=== PATIENT | female | born 1970 | race Two or more races ===

== ENCOUNTER 2025-01-23 07:54 | Inpatient (IN) | payer BC ==
[~2025-01-23] VITALS: Ht 157.5 cm; Wt 81.3 kg
[~2025-01-23 07:54] MED LIST: ATOR10TA52 PO; CHOLCAP10 PO; FURO40TA4 PO; HYDR-4491 OR; LEFL20TA PO; LISI20TA56 PO; METF-370 PO; TIRZ10IN SC
[2025-01-23] MEDS: TRANEXAMIC ACID 20 ML ONE (07:55)
[2025-01-23] MEDS: levoFLOXacin 500MG 100 ML IV ONE (07:55)
[2025-01-23] MEDS ORDERED: MIDAZOLAM HCL 2MG/2ML 2ml VIAL (1mg/ml) ONE (08:00)
[2025-01-23] MEDS ORDERED: fentaNYL CITRATE 100 MCG/2 ML VL ONE ×2 (08:00→11:54)
[2025-01-23] MEDS ORDERED: fentaNYL CITRATE 5 ML ONE (08:00)
[2025-01-23] MEDS ORDERED: HYDROmorphone HCL 2 MG/ML VL/or syr ONE (08:00)
[2025-01-23] MEDS: ceFAZolin 2 GM/D5W50ml 50 ML IV ONE (08:11)
--- NOTE | 2025-01-23 09:37 | DVHHP2 ---
History Allergies: Coded Allergies: NO KNOWN ALLERGIES (Unverified , 01/22/25) Chief Complaint: Cervical stenosis Present Illness(Onset/Duration Patient arrives today for elective surgery with Dr. Devan De Santiago cervical 3 through 7 anterior cervical diskectomy and fusion The risks/benefits/alternatives of surgery were explained to the patient in detail including but not limited to , stroke, paralysis, myocardial infarction, bleeding, infection, complications of anesthesia (dry mouth, sore throat, dental damage, respiratory depression, blindness), postoperative infection, incomplete relief of symptoms, recurrence of symptoms, damage to blood vessels, nerves and tendons, pulmonary embolism and possible need for repeat surgery in the future. Pain, damage to surrounding soft tissue structures, need for reoperation or future surgery, persistent pain/disability/deformity, bone graft collapse or extrusion of interbody device, instrumentation failure, need for instrumentation removal, dural tear, temporary or permanent nerve root damage, deep vein thrombosis, pulmonary embolism, were described to the patient in detail and the patient wishes to proceed. No guarantee of surgical outcome/improvement was implied. All of the questions were answered thoroughly and consents were obtained. Call with raman Forbes [facility] Orthopaedic Spine Surgery nurse practitioner For Dr Tre De Santiago Patient was examined, chart reviewed, labs evaluated, and diagnostic studies and findings analyzed. Case was discussed with Dr. Devan De Santiago who formulated the plan of care. This medical document was created using an electronic medical record system with [employer] dictation system. Although this document has been carefully reviewed, there might still be some phonetic and typographical errors. These areas are purely typographical due to imperfections of the software programs, and do not reflect any compromise in the patient's medical care. Past Surgical History: Hysterectomy Exam Exam General Appearance: Normal HEENT: Normal ENT Inspection Neck: Normal Inspection, Other (Bilateral neck and shoulder pain and soreness no limitation in range of movement) Respiratory: No Accessory Muscle Use, No Respiratory Distress Cardiovascular: Other (No complaints) Gastrointestinal: Non Tender, Other (No complaints) Extremities: Normal capillary refill, Normal inspection, Normal range of motion, Other (Good H[employer] Vendor 5/5) Neurologic: No Motor Deficits, Normal Affect, No Sensory Deficits Plan Additional comments: Patient states that she has had bilateral neck pain right greater than left for several years she does notice that she does have difficulty with gripping for extended period of time she also complains of bilateral lower leg weakness occasionally JAMIE FORBES FURNIT[employer] SALES ASSOCIATE Jan 23, 2025 09:37
[2025-01-23] MEDS ORDERED: DexAMETHasone SOD PHOS 10MG/1ML VIAL INJ ONE (09:39)
--- NOTE | 2025-01-23 09:40 | POSTOP ---
Post-Operative Note Post-Operative Note Preop Diagnosis Cervical Degenerative Disk Disease and Spinal Stenosis Causing incapacitating neck pain, radiculopathy and progressive neurologic deficit Postop Diagnosis: Cervical Degenerative Disk Disease and Spinal Stenosis Causing incapacitating neck pain, radiculopathy and progressive neurologic deficit Operation performed Cervical 3-7 anterior cervical diskectomy and fusion, mobi-C Specimen none Anesthesia: General Anesthesiologist: Dr Lockhart Blood Loss(fluid mgmt) see anesthesia record Tourniquet Time none Surgeon Dr Devan De Santiago Filterer Qing Ross [employer] Implant Mobi-c [id number] x 2 Complications & Mgmt None Additional Remarks Disposition: -Pending -Discharge RX: -Follow up appointment: with Dr De Santiago [place] [id number] [employer] [address] [place] [place] [id number] -Pain: - IV pain meds post op day 1, with PO supplementation, goal is to progress weaning off IV medications and control pain with PO only. morphine 1mg q 4 hours (PAIN 7-10) - P.O. analgesics:Tylenol 650MG (PAIN 1-3) [place] 10/325 mg (PAIN 4-6) - Muscle relaxers scheduled administration. This is a beneficial medications for the incisional pain as it is mostly related to muscle spasms. Flexeril 10 mg TID - Cepacol throat lozenges as needed for sore throat -Antibiotics Operative recommendations: -Postoperative dose:-Post operative antibiotics cefazolin 1 g IV piggyback every 8 hours x 48 hours total of 6 doses -DVT PPX: -Hold all chemical DVT/ blood thinners for 14 days postoperatively -use mechanical DVT PPX such as SCD's, ambulation -Activity: -Pending PT evaluation and patients progression -Sit at side of bed for meals -Goal: Ambulate independently and safely (may use assistive devices if needed) -Medical Therapy goals: -Afebrile- Patient may develop a expected post operative fever by day 2-3, this may not be accompanied with a elevation in WBC. if fever develops: Acetaminophen for fever. Albuterol nebulizer Tx every 12 hours for 24 hours to facilitate adequate lung expansion and prevent development of atelectasis. -Euglycemic: bloods sugars under 130mmol/L for optimal healing -Normotensive: Avoid events of hypertension. This helps to keep post operative healing intact and avoids destabilization of beneficial hemostatic coagulation. Drains -Bulb drains: record output and characteristics of the drainage EVERY 6 HOURS- if there is no output indicate this by documenting 0ml output in note. These will be to thumbprint compression unless otherwise ordered. Record output as well as amount in a note at least every 6 houtrs- more if indicated. Wound drainage is described by type, color, amount, and odor. Drainage can be 1 serous: Clear and thin, may be present in healing healthy wound. 2 serosanguineous containing blood may also be present and healthy healing wound 3. Sanguinous primarily blood 4. Purulent this is thick, white, and pus like. It may be indicated to give of a infection and should constitute a call to the provider immediately with the plan that the sample should be cultured. -Bruno: -DC in OR -Dressings -Anterior cervical patients: Initial surgical dressing may be reinforced if needed. If there is excessive bleeding, leaking, drainage in the bulb drain notify provider -Bowel management: -Colace 100mg bid -Diet: -Clear liquid diet and advance as patient tolerates within dietary limitations ( example: diabetic, Cardiac) -Incentive Spirometer: -10 x hour while awake, RN please educate and observe repeat demonstration, have IS at bedside POD #1 -X-rays: - none indicated at this time -Consults: -Physical Therapy evaluation, treatment recommendations, and discharge recommendations Call with questions Terrence Ross ACNP- Orthopaedic Spine Surgery nurse practitioner For Dr Tre De Santiago Patient was examined, chart reviewed, labs evaluated, and diagnostic studies and findings analyzed. Case was discussed with Dr. Devan De Santiago who formulated the plan of care. This medical document was created using an electronic medical record system with [employer] dictation system. Although this document has been carefully reviewed, there might still be some phonetic and typographical errors. These areas are purely typographical due to imperfections of the software programs, and do not reflect any compromise in the patient's medical care. Date 01/23/25 Time 09:37 QING ROSS NP Jan 23, 2025 09:39
[2025-01-23] MEDS: ONDANSETRON HCL 4 MG/2 ML VIAL IV ONE (10:30)
[2025-01-23] MEDS ORDERED: HYDROmorphone HCL 2 MG/ML VL/or syr IV PRN (10:30)
[2025-01-23] MEDS ORDERED: MORPHINE SULFATE 4 MG/ML SYR/VIAL IV PRN ×2 (10:30→13:00)
[2025-01-23] MEDS: METOCLOPRAMIDE HCL 5MG/ml INJ 2ml VIAL IV ONE (10:30)
[2025-01-23] MEDS ORDERED: hydrALAZINE HCL 20 MG/ML VL IV PRN (10:30)
[2025-01-23] MEDS ORDERED: MIDAZOLAM HCL 2MG/2ML 2ml VIAL (1mg/ml) IV PRN (10:30)
[2025-01-23] MEDS: ACCU-CHEK COMFORT CURVE STRIP VI ONE (10:30)
[2025-01-23] MEDS ORDERED: ePHEDrine SULFATE 50 MG/ML AMP IV PRN (10:30)
[2025-01-23] MEDS ORDERED: PHENYLEPHRINE HCL 10 MG/ML VL IV ONE (11:15)
[2025-01-23] MEDS ORDERED: SUGAMMADEX 200mg/2ml Vial (100MG/ML) IV ONE (12:28)
[2025-01-23] MEDS ORDERED: NITROGLYCERIN 0.4 MG SL TAB SL PRN (12:45)
[2025-01-23] MEDS ORDERED: ACETAMINOPHEN 325 MG TAB PO PRN (12:45)
[2025-01-23] MEDS ORDERED: ONDANSETRON HCL 4 MG/2 ML VIAL IV PRN (12:45)
[2025-01-23] MEDS ORDERED: MORPHINE SULFATE INJ 2 MG/ml SYRG IV PRN ×2 (12:45)
--- NOTE | 2025-01-23 12:54 | DVHOP2 ---
Operative Report - 2 Report Details Date: 01/23/25 Preop Diagnosis: cervical spinal stenosis Postop Diagnosis: same as pre op Surgeon: Devan De Santiago MD Food Analyst: Qing Forbes NP Anesthesiologist: Dr. Lockhart Anesthesia: General Consent: The patient was informed of the risks and benefits of the procedure. These include but are not limited to complications of anesthesia, postoperative infection, incomplete relief of symptoms, recurrence of symptoms, damage to blood vessels, nerves and tendons, deep venous thrombosis, pulmonary embolism and possible need for repeat surgery in the future. Name of Procedure Performed see detailed note Procedure Details Procedure Details: Pre Op Diagnosis: Cervical Degenerative Disk Disease and Spinal Stenosis Ca using incapacitating neck pain, radiculopathy and progressive neurologic deficit Post Op Diagnosis: Cervical Degenerative Disk Disease and Spinal Stenosis Causing incapacitating neck pain, radiculopathy and progressive neurologic deficit Procedure: Cervical 5 to 6 anterior cervical discectomy with Cervical 5-6 foraminotomies and facetectomies to decompression the spinal canal and Cervical 6 nerve roots Cervical 6 to 7 anterior cervical discectomy with Cervical 6-7 foraminotomies and facetectomies to decompression the spinal canal and Cervical 7 nerve roots Cervical 5/6 artificial disk arthroplasty with MOBI C device Cervical 6/7 artificial disk arthroplasty with MOBI C device Microscope for micro dissection Surgeon: Devan De Santiago MD Anesthesia: General Assist: Qing Forbes NP Fluids and EBL: see anesthesia note Procedure Note: The patient was seen in the Pre-anesthesia Care Unit and the site of the incision was initialed by me with a felt tipped marker. All questions by the patient were answered to the satisfaction of the patient and the chart was reviewed. The patient was taken to the operating room and placed supine on the [facility] Flat top table. General anesthesia was induced. Neuromonitoring leads were placed. A rolled towel was placed between the shoulder blades to hyperextend out the chest which will allow better exposure of the cervical spine. Halter traction to 10 pounds was placed. The arms were padded and adducted to the patient's side making sure all pulses in the hands were present. Tape traction was undertaken on the shoulders to give us better radiographic exposure of the distal cervical spine. A gel-pad was placed under the occiput and 5 degrees of extension was placed on the neck without adverse effects to the patient. The anterior neck was prepped and draped. Pre-operative antibiotics were given 30 minutes prior to the start of the procedure. A c-arm fluoroscope was used to graciela out the incision site. At this time, a time out was taken per usual protocol. Next an incision was made through the skin with a 15 blade scalpel through the subcutaneous tissue down to the platysma. Self-retainers were placed. The platysma was incised along the longitudinal border with a Metzenbaum scissors. Blunt dissection was made through the deep cervical and pre-tracheal fascia taking care to protect the carotid sheath laterally and the Trachea/esophagus medially. The dissection was carried down to the prevertebral fascia. Any crossing vessels were ligated using a vascular clip or coagulated with a bovie. An esophageal retractor was next used to retract the trachea/esophagus and a bent [address] through the anterior annulus of the cervical disk and a lateral C-arm fluoroscopic image was taken to confirm that we were at the correct level. Next, bovie electrocautery was used to expose the bones cervical 4 and 5and bipolar electrocuatery was used to lift up the Longus colli and capitus muscles. Black-Belt Self Retainers were used to retract the longus colli and capitus muscles bilaterally as well as the trachea/esophagus to the right and the carotid sheath to the left. Smooth thin Black-Belt retractors were placed proximally and distally and a needle was placed again in the anterior annulus of the disk and an image taken to confirm the correct level. At this point, the microscope was wheeled in and an 11 blade scalpel incised the anterior annulus of the cervical cervical 5/6 and 6/7 disks. Next, straight and curved curettes removed the remainder of the disks all the way down to the posterior longitudinal ligament. Carefully, a Kerison number one rongeur inscised the posterior longitudinal ligament at the lateral end of the cervical 5/6 and 6/7 disk and using a micro, blunt tip nerve hook to separate the posterior longitudinal ligament from the dura, alternating 1 mm and 2 mm Kerison rongeurs removed the posterior longitudinal ligament. Next, Kerison 1mm and 2 mm rongeurs were alternated to get under the uncinate processes and undercut them to perform foraminotomies and factectomies at cervical 5/6 and 6/7levels to decompress the central canal and cervical 6 and 7 nerve roots. Next the microscope was wheeled away and the c-arm fluoroscope was wheeled into the field and a lateral image was obtained. Increasing size graft trials were used starting at a 5 mm thick size until the proper tension in the disk space and height anabaptism obtained. We then placed a MOBI C deviceat cervical 5/6 and then repeated the Process at C6/7. Both levels were 15/15/5. Satisfactory placement was confirmed in the AP and lateral views using a C-arm fluoroscope. Copious irrigation of the wound with sterile saline and all bleeding was controlled before closure initiated. At this point, a 10 [place] round Raghu Drain was place deep to the Platysma muscle and the Platysma was approximated with one interrupted 0-Vicryl suture. The subcutaneous tissue was closed with interrupted 2-0 vicryl sutures and the skin was closed with earlene. Sterile dressings were placed and a cervical collar placed, the patient extubated, transferred to the stretcher and taken to the Recovery Room in unremarkable condition. CPT code: 57737,64316 Condition Stable Disposition Still a Patient DEVAN DE SANTIAGO MD Jan 23, 2025 12:54
[2025-01-23 12:55] VITALS: PULSE 78; RESP 12; O2SAT 94
[2025-01-23] MEDS ORDERED: ceFAZolin 1GM/50ML 50 ML IV SCH (14:00)
[2025-01-23] MEDS: D5W/SOD CHLO 0.9% 1,000 ML IV SCH (14:23)
[2025-01-23 16:53] VITALS: BP 99/67; PULSE 68; RESP 12; TEMP 98.1; O2SAT 95
[2025-01-23 17:00] VITALS: BP 128/79; PULSE 73; RESP 12; TEMP 96.7; O2SAT 94
[2025-01-23] MEDS: CYCLOBENZAPRINE HCL 10 MG TAB PO SCH (17:07)
[2025-01-23] MEDS: ceFAZolin 1GM/50ML 50 ML IV SCH (17:14)
[2025-01-23] MEDS: HYDROcodone-ACET 10/325MG TAB PO PRN (18:11)
[2025-01-23 20:00] VITALS: PULSE 83
[2025-01-23 21:00] VITALS: BP 131/68; PULSE 77; RESP 17; TEMP 97.5; O2SAT 92
[2025-01-23] MEDS: DOCUSATE SOD 100 MG CAP PO SCH (21:57)
[2025-01-23] MEDS: MORPHINE SULFATE 4 MG/ML SYR/VIAL IV PRN (22:04)
[2025-01-24 01:00] VITALS: BP 105/63; PULSE 75; RESP 17; TEMP 97.5; O2SAT 96
--- NOTE | 2025-01-24 03:56 | DVH ---
C-ARM FLUOROSCOPY: PROCEDURE: Cervical spine surgery FLUOROSCOPY TIME: 1 minute 36 seconds DAP: 1 mgy FINDINGS: Spot intraoperative C arm radiographs demonstrating cervical spine surgery. IMPRESSION: Please refer to surgical report for detailed findings.
[2025-01-24 05:00] VITALS: BP 102/64; PULSE 69; RESP 17; TEMP 97.8; O2SAT 97
[2025-01-24 08:00] VITALS: BP 113/70; PULSE 62; PULSE 66; RESP 16; TEMP 97.6; O2SAT 97
[2025-01-24 12:10] VITALS: BP 109/61; PULSE 83; RESP 16; TEMP 98.9; O2SAT 97
[2025-01-24] MEDS ORDERED: DEXTROSE (50%) 50ML SYRG IV PRN (13:00)
[2025-01-24] MEDS ORDERED: CYCL-611 PO (13:19)
[2025-01-24] MEDS ORDERED: DOCU-265 PO (13:19)
[2025-01-24] MEDS ORDERED: HYDR-4798 PO (13:20)
--- NOTE | 2025-01-24 13:31 | DVHDS2 ---
ASSESSMENT ASSESSMENT Hospital Course The patient arrived for a elective spine surgery with Dr. DE SANTIAGO. Surgery went as planned with no complications. After a short stay in the PACU patient was admitted to the hospital for postoperative care and pain management over the course of 1 postoperative days the patient was able to tolerate a diet, ambulate independently, the pain has been managed with oral analgesics. The surgical site is well-approximated with sutures, some residual drainage continues from drain insertion sites after removal, however it is manageable with daily wound care and dressing changes. Some improvement to preoperative symptoms of extremities, strength and motion. There is new post operative pain that is localized to the surgical site. The patient will follow-up with Dr. De Santiago for wound check and staple removal. You may shower and let the water run over your neck wound however you must pat it dry with sterile 4x4s gauze. Please do not use regular household towels. Keep your incision covered when you are out of your house or when you are wearing clothing that rub on your incision. He will also do not want to have a seatbelt rubbing on your incision. If you are at home and you have clothing that does not contact your incision you may leave it open to air. You may have some residual drainage from the drain site for the next 2-3 days which is normal it should be a very light pink or rissa color fluid. If it changes or becomes bright red please call 911. Assessment Cervical Degenerative Disk Disease and Spinal Stenosis Causingincapacitating neck pain, radiculopathy and progressive neurologic deficit Problems: (1) Muscle spasms of neck Assessments: flexeril prescribed (2) Postoperative pain after spinal surgery Assessments: pain medications sent to pharmacy of choice JAMIE ROSS NP Jan 24, 2025 13:31
--- NOTE | 2025-01-24 13:31 | DVHDS2 ---
Discharge Summary Date of Admission Jan 23, 2025 at 12:34 Date of Discharge: Jan 24, 2025 Admitting Diagnosis Cervical Degenerative Disk Disease and Spinal Stenosis Causing incapacitating neck pain, radiculopathy and progressive neurologic deficit Wounds: left anterior neck, wound edges are well approximated with earlene minimal drainage after drain removal. Patient understands that residual drainage is to be expected Labs/Diagnostic Data: Laboratory Results Test 01/23/25 13:01 POC Glucose 136 mg/dl (70-106) Brief Hx & Hospital Course: The patient arrived for a elective spine surgery with Dr. DE SANTIAGO. Surgery went as planned with no complications. After a short stay in the PACU patient was admitted to the hospital for postoperative care and pain management over the course of 1 postoperative days the patient was able to tolerate a diet, ambulate independently, the pain has been managed with oral analgesics. The surgical site is well-approximated with sutures, some residual drainage continues from drain insertion sites after removal, however it is manageable with daily wound care and dressing changes. Some improvement to preoperative symptoms of extremities, strength and motion. There is new post operative pain that is localized to the surgical site. The patient will follow-up with Dr. De Santiago for wound check and staple removal. You may shower and let the water run over your neck wound however you must pat it dry with sterile 4x4s gauze. Please do not use regular household towels. Keep your incision covered when you are out of your house or when you are wearing clothing that rub on your incision. He will also do not want to have a seatbelt rubbing on your incision. If you are at home and you have clothing that does not contact your incision you may leave it open to air. You may have some residual drainage from the drain site for the next 2-3 days which is normal it should be a very light pink or rissa color fluid. If it changes or becomes bright red please call 911. Operations or Procedures Cervical 3-7 anterior cervical diskectomy and fusion, mobi-C Condition at Discharge: Good Final Diagnosis/Problems List pain medications sent to pharmacy of choice Problems List: (1) Muscle spasms of neck Status: Acute (2) Postoperative pain after spinal surgery Status: Acute Discharge Disposition: Home Discharge Instruct/Medications Diet: Consistent carbohydrate Diet comment: avoid high sugar food, as well as processed foods. keep blood sugar in check Activity: Light activity Activity comment: Move you neck through normal range of motion, do not force movments. You may use warm or cool to your shoulders and back of your neck if it is helpfull. Follow Up/Referral: keep your post op appointment Call [phone] for a appointment, or to change or confirm your appoinment [id number] [facility], [address], [place] [id number] Medications: medications sent to pharmacy of choice New Medications: Cyclobenzaprine HCl (Cyclobenzaprine Hydrochlo) 10 Mg Tab 10 MG PO TID for 30 Days, #90 TAB Docusate Sodium (Docusate Sodium) 100 Mg Cap 100 MG PO BID for 14 Days, #28 CAP Hydrocodone-Acetaminophen (Hydrocodone Bitartrate/AC 10-325 mg) 1 Tab Tab 1 TAB PO Q6HP PRN for 7 Days, #28 TAB Continued Medications: Atorvastatin Calcium (Atorvastatin Calcium) 10 Mg Tab 10 MG PO DAILY, TAB Cholecalciferol (D2000 Ultra Strength) 2,000 Unit Cap 2000 UNIT PO DAILY, CAP Furosemide (Furosemide) 40 Mg Tab 40 MG PO DAILY, TAB Hydroxychloroquine Sulfate (Plaquenil) 200 Mg Tab 200 MG OR BID, TAB Leflunomide (Arava) 20 Mg Tab 20 MG PO DAILY, TAB Lisinopril (Lisinopril) 20 Mg Tab 20 MG PO DAILY@BREAKFAST, TAB Metformin Hydrochloride (Metformin Hcl) 500 Mg Tab 500 MG PO BID, TAB Tirzepatide (Mounjaro) 10 Mg/0.5 Ml Inj 10 MG SC QWEEKLY, INJ 25 Discharge Statement: "Patient was advised to return to the ER or call 911 if any headaches, dizziness, shortness of breath, chest pain, abdominal pain, bleeding, fevers, or worsening of medical condition. Patient was counseled about treatment plan, medications, possible side effects, patientverbalized understanding. All questions were answered to the best of my ability. This discharge took greater then 30 minutes in planning, reviewing documentation, counseling the patient, and discussing with other team members." ASSESSMENT ASSESSMENT Hospital Course The patient arrived for a elective spine surgery with Dr. DE SANTIAGO. Surgery went as planned with no complications. After a short stay in the PACU patient was admitted to the hospital for postoperative care and pain management over the course of 1 postoperative days the patient was able to tolerate a diet, ambulate independently, the pain has been managed with oral analgesics. The surgical site is well-approximated with sutures, some residual drainage continues from drain insertion sites after removal, however it is manageable with daily wound care and dressing changes. Some improvement to preoperative symptoms of extremities, strength and motion. There is new post operative pain that is localized to the surgical site. The patient will follow-up with Dr. De Santiago for wound check and staple removal. You may shower and let the water run over your neck wound however you must pat it dry with sterile 4x4s gauze. Please do not use regular household towels. Keep your incision covered when you are out of your house or when you are wearing clothing that rub on your incision. He will also do not want to have a seatbelt rubbing on your incision. If you are at home and you have clothing that does not contact your incision you may leave it open to air. You may have some residual drainage from the drain site for the next 2-3 days which is normal it should be a very light pink or rissa color fluid. If it changes or becomes bright red please call 911. Assessment pain medications sent to pharmacy of choice Problems: (1) Muscle spasms of neck Assessments: flexeril prescribed (2) Postoperative pain after spinal surgery Assessments: pain medications sent to pharmacy of choice JAMIE ROSS NP Jan 24, 2025 13:31
--- NOTE | 2025-01-24 14:22 | DVHINCON2 ---
Date Seen: Jan 23, 2025 Referring Physician Orthopedic spine surgeon. Reason for Consultation Medical management. History of Present Illness 84-year-old female with a known history of hypertension, dyslipidemia, connective tissue disorder, history of lupus, cervical degenerative disc disease who was admitted by spine surgery for elective procedure. Patient is status post L5-6-7 lumbar spine surgery. Patient is currently denies any chest pain shortness of breath fevers chills headache blurry vision. Past Medical History Hypertension Dyslipidemia Mixed connective tissue disorder Lupus Cervical degenerative disc disease. Past Surgical History Status post C 5-6-7 anterior diskectomy with cervical fusion surgery. Family History: Diabetes mellitus G8 MOTHER FH: breast cancer G8 MOTHER FH: cirrhosis G8 MOTHER G8 FATHER FH: prostate cancer G8 FATHER Allergies: Coded Allergies: NO KNOWN ALLERGIES (Unverified , 01/22/25) Home Meds Active Scripts Hydrocodone-Acetaminophen (Hydrocodone Bitartrate/AC 10-325 mg) 1 Tab Tab, 1 TAB PO Q6HP PRN for 7 Days, #28 TAB Prov:JAMIE ROSS HABILITATION ASSISTANT 01/24/25 Docusate Sodium (Docusate Sodium) 100 Mg Cap, 100 MG PO BID for 14 Days, #28 CAP Prov:JAMIE ROSS HABILITATION ASSISTANT 01/24/25 Cyclobenzaprine HCl (Cyclobenzaprine Hydrochlo) 10 Mg Tab, 10 MG PO TID for 30 Days, #90 TAB Prov:JAMIE ROSS HABILITATION ASSISTANT 01/24/25 Reported Medications Cholecalciferol (D2000 Ultra Strength) 2,000 Unit Cap, 2000 UNIT PO DAILY, CAP 01/22/25 Atorvastatin Calcium (ATORVASTATIN CALCIUM) 10 Mg Tab, 10 MG PO DAILY, TAB 01/22/25 Hydroxychloroquine Sulfate (PLAQUENIL) 200 Mg Tab, 200 MG OR BID, TAB 01/22/25 Leflunomide (Arava) 20 Mg Tab, 20 MG PO DAILY, TAB 01/22/25 Furosemide (Furosemide) 40 Mg Tab, 40 MG PO DAILY, TAB 01/22/25 Lisinopril (Lisinopril) 20 Mg Tab, 20 MG PO DAILY@BREAKFAST, TAB 01/22/25 Metformin Hydrochloride (Metformin Hcl) 500 Mg Tab, 500 MG PO BID, TAB 01/22/25 Tirzepatide (Mounjaro) 10 Mg/0.5 Ml Inj, 10 MG SC QWEEKLY, INJ 01/22/25 Current Medications Current Medications Medications (Trade) Dose Ordered Sig/Cassy Route PRN Reason Start Time Stop Time Status Last Admin Docusate Sodium (Colace Capsule) 100 mg BID PO 01/23/25 22:00 01/24/25 09:08 Cefazolin Sodium 50 ml @ 100 mls/hr Q8H IV 01/23/25 17:30 01/25/25 09:59 01/24/25 09:08 Diagnostic Test (Pha) (Accu-Chek Comfort Curve T) 1 strip ACHS 01/24/25 17:00 Insulin Human Regular (InsuLIN R) ACHS SC 01/24/25 17:00 Dextrose 50 ml UD PRN IV Blood Sugar LESS THAN 60 01/24/25 13:00 Review of Systems Twelve review of system are negative besides mentioned above. 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 1. Hypertension controlled 2. Dyslipidemia 3. Mixed connective tissue disorder 4. Lupus 5. Cervical spine stenosis status post anterior diskectomy at C5-6-7 spinal decompression surgery -continue pain meds as needed, DVT GI prophylaxis -resume home medications -discharge plan per orthopedic spine surgery. Plan discussed with: Patient Date of Service: Jan 23, 2025 Billing Provider: REY BAEZ MD Common Visit Codes: NOT BILLABLE REY BAZE MD Jan 24, 2025 14:22
[2025-01-24] MEDS ORDERED: InsuLIN REG 1unit/0.01ml Soln (100units/ml) SC SCH (17:00)
[2025-01-24] MEDS ORDERED: ACCU-CHEK COMFORT CURVE STRIP VI SCH (17:00)
== END 2025-01-24 16:05 | disposition home or self-care (01) | DRG 518 ==
LOC: SUR 07:54 → OVERFLOW 12:34 → TELE-WESTW 14:32
PROVIDERS: ADMIT Orthopaedic Surgery; ATTEND Orthopaedic Surgery
PROC: 01N10ZZ Release Cervical Nerve, Open Approach (ICD-10-PCS; 2025-01-23)
PROC: 00NW0ZZ Release Cervical Spinal Cord, Open Approach (ICD-10-PCS; 2025-01-23)
PROC: 4A11X4G Monitoring of Peripheral Nervous Electrical Activity, Intraoperative, External Approach (ICD-10-PCS; 2025-01-23)
PROC: 0RR30JZ Replacement of Cervical Vertebral Disc with Synthetic Substitute, Open Approach (ICD-10-PCS; principal; 2025-01-23 09:40)
DX: M48.02 Spinal stenosis, cervical region (principal); M35.1 Other overlap syndromes; I10 Essential (primary) hypertension; E78.5 Hyperlipidemia, unspecified; M32.9 Systemic lupus erythematosus, unspecified; M50.10 Cervical disc disorder with radiculopathy, unspecified cervical region; Z90.710 Acquired absence of both cervix and uterus; Z83.3 Family history of diabetes mellitus; Z80.3 Family history of malignant neoplasm of breast; Z79.84 Long term (current) use of oral hypoglycemic drugs; Z79.899 Other long term (current) drug therapy
CPT/HCPCS: 72040; 76000; 82962; 86850; 86900; 86901; 97110; 97116; 97163; G0378; J1100; J1956; J2250; J7042